=== PATIENT | female | born 1935 | race Asian ===

== ENCOUNTER 2016-08-31 12:34 | Inpatient (IN) | payer OTHER ==
[~2016-08-31] VITALS: Ht 157.5 cm; Wt 74.0 kg
[~2016-08-31 12:34] MED LIST: AMLODIPINE5 M1; BENAZEPRIL10 M1; CLINDAMYCIN HC300 MG PO; GABAPENTIN100 M2; LAC PO; LEVAQUIN500 MG PO; MIRTAZAPINE15 M2; PROAIR HFA0.09 MG/A1 INH; PULMICORT180 MCG/Ac INH; SIMVASTATIN10 M1
[2016-08-31 13:59] LABS: PLATELET COUNT 201 x10^3mcL (130-400)
[2016-08-31 14:07] LABS: RED CELL DISTRIBUTION WIDTH 15.6 % (11.5-14.5)
[2016-08-31] MEDS ORDERED: AMIODARONE HYD200 M1 PO (14:20)
[2016-08-31] MEDS ORDERED: ELIQUIS2.5 MG PO (14:20)
[2016-08-31] MEDS ORDERED: LIPI20 PO (14:21)
[2016-08-31] MEDS ORDERED: CARVEDILOL6.25 M1 PO (14:21)
[2016-08-31] MEDS ORDERED: CATAPRES0.1 MG PO (14:21)
[2016-08-31] MEDS ORDERED: NEU300 PO (14:22)
[2016-08-31] MEDS ORDERED: BENAZEPRIL HYDR20 M1 PO (14:22)
[2016-08-31] MEDS ORDERED: ALENDRONATE SOD70 M2 PO (14:22)
[2016-08-31 14:48] LABS: MONOCYTE 1 % (0-7); SEGMENTED NEUTROPHILS 70 % (37-75)
[2016-08-31 14:49] LABS: BAND NEUTROPHIL 22 % (0-10); BASOPHIL 0 % (0-2); rbc morphology (normal/abnorm) ABNORMAL (NORMAL)
[2016-08-31 14:55] LABS: CALCIUM 8.3 mg/dL (8.5-10.1); CARBON DIOXIDE 20.7 mmol/L (21-32); CHLORIDE SERUM 97 mmol/L (98-107); CREATININE SERUM 1.4 mg/dL (0.6-1.0); GLUCOSE SERUM 142 mg/dL (74-106); POTASSIUM SERUM 3.9 mmol/L (3.5-5.1); SODIUM SERUM 131 mmol/L (136-145)
[2016-08-31 15:00] LABS: ALKALINE PHOSPHATASE 69 U/L (46-116); ALT/SGPT 46 U/L (14-59); BILIRUBIN TOTAL 1.6 mg/dL (0.20-1.00); TOTAL PROTEIN, SERUM 6.8 g/dL (6.4-8.2)
[2016-08-31 15:02] LABS: ALBUMIN 2.4 g/dL (3.4-5.0)
[2016-08-31 15:23] LABS: AST/SGOT 85 U/L (15-37)
[2016-08-31 16:12] VITALS: BP 107/47
[2016-08-31 16:14] VITALS: BP 105/76
[2016-08-31 17:12] LABS: MAGNESIUM 2.5 mg/dL (1.8-2.4); PHOSPHOROUS 2.5 mg/dL (2.5-4.9)
[2016-08-31 17:21] LABS: T3 TOTAL 0.53 ng/mL
[2016-08-31 17:25] LABS: FREE T4 2.09 ng/dL (0.76-1.46); FREE THYROXINE INDEX 5.3 ug/dL (1.4-4.5); T4(THYROXINE) 13.2 ug/dL (4.7-13.3)
[2016-08-31 17:28] VITALS: BP 107/74
[2016-08-31 18:48] VITALS: BP 106/47
[2016-08-31 21:54] VITALS: BP 131/53
[2016-09-01 05:24] VITALS: BP 112/60
[2016-09-01 06:34] LABS: PLATELET COUNT 146 x10^3mcL (130-400)
[2016-09-01 06:42] LABS: CALCIUM 7.6 mg/dL (8.5-10.1); CARBON DIOXIDE 23.4 mmol/L (21-32); CHLORIDE SERUM 98 mmol/L (98-107); CREATININE SERUM 1.7 mg/dL (0.6-1.0); GLUCOSE SERUM 172 mg/dL (74-106); POTASSIUM SERUM 3.7 mmol/L (3.5-5.1); SODIUM SERUM 135 mmol/L (136-145)
[2016-09-01 07:16] LABS: RED CELL DISTRIBUTION WIDTH 15.2 % (11.5-14.5)
[2016-09-01 09:53] LABS: BAND NEUTROPHIL 44 % (0-10); BASOPHIL 0 % (0-2); METAMYELOCTE 2 % (0-2); MONOCYTE 3 % (0-7); SEGMENTED NEUTROPHILS 46 % (37-75)
[2016-09-01 09:54] LABS: PLATELET MORPHOLOGY PLATELETS DECREASED; rbc morphology (normal/abnorm) NORMAL (NORMAL)
[2016-09-01 11:36] LABS: microscopic required? YES; urine erythrocyte 1+ (NEGATIVE)
[2016-09-01 15:11] VITALS: BP 102/53
[2016-09-01 17:33] VITALS: BP 96/48
[2016-09-01 20:36] VITALS: BP 107/57
[2016-09-02] VITALS (12 sets, daily range): BP systolic 65–109; BP diastolic 31–53
[2016-09-02 06:47] LABS: PLATELET COUNT 178 x10^3mcL (130-400)
[2016-09-02 06:59] LABS: RED CELL DISTRIBUTION WIDTH 15.3 % (11.5-14.5)
[2016-09-02 07:49] LABS: CALCIUM 7.9 mg/dL (8.5-10.1); CARBON DIOXIDE 25.1 mmol/L (21-32); CHLORIDE SERUM 101 mmol/L (98-107); CREATININE SERUM 2.1 mg/dL (0.6-1.0); GLUCOSE SERUM 138 mg/dL (74-106); MAGNESIUM 2.8 mg/dL (1.8-2.4); PHOSPHOROUS 3.9 mg/dL (2.5-4.9); POTASSIUM SERUM 3.3 mmol/L (3.5-5.1); SODIUM SERUM 140 mmol/L (136-145)
[2016-09-02 08:33] LABS: BAND NEUTROPHIL 14 % (0-10); BASOPHIL 0 % (0-2); MONOCYTE 2 % (0-7); PLATELET MORPHOLOGY PLATELETS DECREASED; SEGMENTED NEUTROPHILS 83 % (37-75); rbc morphology (normal/abnorm) ABNORMAL (NORMAL)
[2016-09-03] VITALS (20 sets, daily range): BP systolic 84–137; BP diastolic 41–88
[2016-09-03 05:33] LABS: PLATELET COUNT 172 x10^3mcL (130-400)
[2016-09-03 05:35] LABS: BASOPHIL % 0 % (0-2); RED CELL DISTRIBUTION WIDTH 16.3 % (11.5-14.5)
[2016-09-03 06:10] LABS: ALBUMIN 2.8 g/dL (3.4-5.0); ALKALINE PHOSPHATASE 90 U/L (46-116); ALT/SGPT 69 U/L (14-59); AST/SGOT 162 U/L (15-37); BILIRUBIN TOTAL 2.28 mg/dL (0.20-1.00); CALCIUM 6.8 mg/dL (8.5-10.1); CARBON DIOXIDE 22.2 mmol/L (21-32); CHLORIDE SERUM 105 mmol/L (98-107); CREATININE SERUM 3.5 mg/dL (0.6-1.0); GLUCOSE SERUM 193 mg/dL (74-106); POTASSIUM SERUM 3.4 mmol/L (3.5-5.1); SODIUM SERUM 142 mmol/L (136-145); TOTAL PROTEIN, SERUM 6.1 g/dL (6.4-8.2)
[2016-09-04] VITALS (16 sets, daily range): BP systolic 81–120; BP diastolic 43–63
[2016-09-04 05:49] LABS: CALCIUM 7.4 mg/dL (8.5-10.1); CHLORIDE SERUM 103 mmol/L (98-107); CREATININE SERUM 3.1 mg/dL (0.6-1.0); GLUCOSE SERUM 241 mg/dL (74-106); MAGNESIUM 2.4 mg/dL (1.8-2.4); PHOSPHOROUS 2.6 mg/dL (2.5-4.9); POTASSIUM SERUM 4.2 mmol/L (3.5-5.1); SODIUM SERUM 140 mmol/L (136-145)
[2016-09-04 05:59] LABS: PLATELET COUNT 153 x10^3mcL (130-400)
[2016-09-04 06:00] LABS: BASOPHIL % 0 % (0-2); RED CELL DISTRIBUTION WIDTH 16.3 % (11.5-14.5)
[2016-09-04 06:30] LABS: IRON 69 ug/dL (50-170); TOTAL IRON BINDING CAPACITY 266 ug/dL (250-450)
[2016-09-05] VITALS (18 sets, daily range): BP systolic 73–132; BP diastolic 38–64
[2016-09-05 05:23] LABS: PLATELET COUNT 142 x10^3mcL (130-400)
[2016-09-05 05:31] LABS: CALCIUM 7.5 mg/dL (8.5-10.1); CARBON DIOXIDE 25.4 mmol/L (21-32); CHLORIDE SERUM 105 mmol/L (98-107); CREATININE SERUM 3.5 mg/dL (0.6-1.0); GLUCOSE SERUM 198 mg/dL (74-106); PHOSPHOROUS 3.6 mg/dL (2.5-4.9); POTASSIUM SERUM 4.8 mmol/L (3.5-5.1); SODIUM SERUM 140 mmol/L (136-145)
[2016-09-05 05:33] LABS: RED CELL DISTRIBUTION WIDTH 16.4 % (11.5-14.5)
[2016-09-05 06:14] LABS: BAND NEUTROPHIL 7 % (0-10); METAMYELOCTE 11 % (0-2); MONOCYTE 1 % (0-7); MYELOCYTE 2 % (0-2); SEGMENTED NEUTROPHILS 76 % (37-75)
[2016-09-05 06:15] LABS: PLATELET MORPHOLOGY FEW LARGE PLATELETS; rbc morphology (normal/abnorm) ABNORMAL (NORMAL)
[2016-09-06] VITALS (19 sets, daily range): BP systolic 91–1123; BP diastolic 41–76
[2016-09-06 04:51] LABS: PLATELET COUNT 152 x10^3mcL (130-400)
[2016-09-06 05:02] LABS: CALCIUM 7.3 mg/dL (8.5-10.1); CARBON DIOXIDE 24.9 mmol/L (21-32); CHLORIDE SERUM 104 mmol/L (98-107); CREATININE SERUM 3.5 mg/dL (0.6-1.0); GLUCOSE SERUM 169 mg/dL (74-106); MAGNESIUM 1.9 mg/dL (1.8-2.4); PHOSPHOROUS 4.1 mg/dL (2.5-4.9); POTASSIUM SERUM 5.2 mmol/L (3.5-5.1); SODIUM SERUM 139 mmol/L (136-145)
[2016-09-06 05:34] LABS: BAND NEUTROPHIL 4 % (0-10); METAMYELOCTE 10 % (0-2); MONOCYTE 1 % (0-7); MYELOCYTE 1 % (0-2); SEGMENTED NEUTROPHILS 79 % (37-75)
[2016-09-06 05:35] LABS: rbc morphology (normal/abnorm) ABNORMAL (NORMAL)
[2016-09-06 05:36] LABS: PLATELET MORPHOLOGY FEW LARGE PLATELETS
[2016-09-06 14:17] LABS: CALCIUM 7.3 mg/dL (8.5-10.1); CARBON DIOXIDE 24.6 mmol/L (21-32); CHLORIDE SERUM 102 mmol/L (98-107); GLUCOSE SERUM 167 mg/dL (74-106); SODIUM SERUM 143 mmol/L (136-145)
[2016-09-06 14:21] LABS: POTASSIUM SERUM 5.8 mmol/L (3.5-5.1)
[2016-09-06 14:22] LABS: CREATININE SERUM 4.3 mg/dL (0.6-1.0)
[2016-09-07] VITALS (18 sets, daily range): BP systolic 84–147; BP diastolic 39–58
[2016-09-07 05:25] LABS: PLATELET COUNT 150 x10^3mcL (130-400)
[2016-09-07 05:35] LABS: RED CELL DISTRIBUTION WIDTH 15.6 % (11.5-14.5)
[2016-09-07 05:48] LABS: ALBUMIN 1.7 g/dL (3.4-5.0); ALKALINE PHOSPHATASE 153 U/L (46-116); ALT/SGPT 53 U/L (14-59); AST/SGOT 53 U/L (15-37); CALCIUM 7.4 mg/dL (8.5-10.1); CARBON DIOXIDE 26.8 mmol/L (21-32); CHLORIDE SERUM 105 mmol/L (98-107); CREATININE SERUM 3.1 mg/dL (0.6-1.0); GLUCOSE SERUM 161 mg/dL (74-106); MAGNESIUM 1.9 mg/dL (1.8-2.4); PHOSPHOROUS 4.7 mg/dL (2.5-4.9); POTASSIUM SERUM 5.3 mmol/L (3.5-5.1); SODIUM SERUM 140 mmol/L (136-145); TOTAL PROTEIN, SERUM 4.3 g/dL (6.4-8.2)
[2016-09-07 05:49] LABS: ATYPICAL LYMPH 1 %; BAND NEUTROPHIL 4 % (0-10); METAMYELOCTE 7 % (0-2); MONOCYTE 3 % (0-7); MYELOCYTE 2 % (0-2); SEGMENTED NEUTROPHILS 79 % (37-75)
[2016-09-07 05:52] LABS: rbc morphology (normal/abnorm) ABNORMAL (NORMAL)
[2016-09-07 05:53] LABS: PLATELET MORPHOLOGY LARGE PLATELET SEEN
[2016-09-08] VITALS (18 sets, daily range): BP systolic 80–139; BP diastolic 33–63
[2016-09-08 05:42] LABS: BASOPHIL % 0.6 % (0-2); PLATELET COUNT 142 x10^3mcL (130-400)
[2016-09-08 05:50] LABS: CALCIUM 7.7 mg/dL (8.5-10.1); CARBON DIOXIDE 28.9 mmol/L (21-32); CHLORIDE SERUM 104 mmol/L (98-107); CREATININE SERUM 2.9 mg/dL (0.6-1.0); GLUCOSE SERUM 136 mg/dL (74-106); POTASSIUM SERUM 4.2 mmol/L (3.5-5.1); SODIUM SERUM 142 mmol/L (136-145)
[2016-09-08 20:27] LABS: PLATELET COUNT 133 x10^3mcL (130-400)
[2016-09-08 20:56] LABS: RED CELL DISTRIBUTION WIDTH 19.5 % (11.5-14.5)
[2016-09-08 21:19] LABS: BAND NEUTROPHIL 10 % (0-10); BASOPHIL 0 % (0-2); METAMYELOCTE 1 % (0-2); MONOCYTE 3 % (0-7); MYELOCYTE 1 % (0-2); SEGMENTED NEUTROPHILS 81 % (37-75)
[2016-09-08 21:21] LABS: PLATELET MORPHOLOGY PLATELETS NORMAL
[2016-09-09] VITALS (17 sets, daily range): BP systolic 78–132; BP diastolic 34–543
[2016-09-09 04:51] LABS: BASOPHIL % 0.7 % (0-2); PLATELET COUNT 134 x10^3mcL (130-400)
[2016-09-09 04:59] LABS: RED CELL DISTRIBUTION WIDTH 20.3 % (11.5-14.5)
[2016-09-09 05:05] LABS: ALKALINE PHOSPHATASE 245 U/L (46-116); ALT/SGPT 41 U/L (14-59); AST/SGOT 50 U/L (15-37); BILIRUBIN TOTAL 1.9 mg/dL (0.20-1.00); CALCIUM 7.6 mg/dL (8.5-10.1); CARBON DIOXIDE 24.3 mmol/L (21-32); CHLORIDE SERUM 104 mmol/L (98-107); GLUCOSE SERUM 116 mg/dL (74-106); PHOSPHOROUS 6.9 mg/dL (2.5-4.9); POTASSIUM SERUM 4.8 mmol/L (3.5-5.1); SODIUM SERUM 143 mmol/L (136-145)
[2016-09-09 05:08] LABS: ALBUMIN 1.6 g/dL (3.4-5.0); TOTAL PROTEIN, SERUM 4.2 g/dL (6.4-8.2)
[2016-09-09 05:09] LABS: CREATININE SERUM 4.2 mg/dL (0.6-1.0)
[2016-09-10] VITALS (18 sets, daily range): BP systolic 86–136; BP diastolic 40–56; Ht 157.5 cm; Wt 74.0 kg
[2016-09-10 05:18] LABS: PLATELET COUNT 135 x10^3mcL (130-400)
[2016-09-10 05:27] LABS: RED CELL DISTRIBUTION WIDTH 19.2 % (11.5-14.5)
[2016-09-10 05:43] LABS: CALCIUM 7.1 mg/dL (8.5-10.1); CHLORIDE SERUM 101 mmol/L (98-107); CREATININE SERUM 3.5 mg/dL (0.6-1.0); GLUCOSE SERUM 127 mg/dL (74-106); PHOSPHOROUS 5.8 mg/dL (2.5-4.9); POTASSIUM SERUM 4.1 mmol/L (3.5-5.1); SODIUM SERUM 139 mmol/L (136-145)
[2016-09-10 05:52] LABS: BAND NEUTROPHIL 6 % (0-10); METAMYELOCTE 4 % (0-2); MONOCYTE 3 % (0-7); SEGMENTED NEUTROPHILS 85 % (37-75)
[2016-09-10 05:57] LABS: rbc morphology (normal/abnorm) ABNORMAL (NORMAL)
[2016-09-10 05:58] LABS: PLATELET MORPHOLOGY LARGE PLATELET SEEN; tear drop cell (dacryocyte) 1+
[2016-09-11] VITALS (19 sets, daily range): BP systolic 97–131; BP diastolic 37–58
[2016-09-11 05:12] LABS: BASOPHIL % 1.3 % (0-2); PLATELET COUNT 164 x10^3mcL (130-400)
[2016-09-11 05:24] LABS: CHLORIDE SERUM 101 mmol/L (98-107); CREATININE SERUM 3.1 mg/dL (0.6-1.0); GLUCOSE SERUM 181 mg/dL (74-106); PHOSPHOROUS 7.5 mg/dL (2.5-4.9); POTASSIUM SERUM 4.6 mmol/L (3.5-5.1); SODIUM SERUM 137 mmol/L (136-145)
[2016-09-11 05:41] LABS: RED CELL DISTRIBUTION WIDTH 19.6 % (11.5-14.5)
[2016-09-12] VITALS (12 sets, daily range): BP systolic 99–121; BP diastolic 37–50
[2016-09-12 05:00] LABS: PLATELET COUNT 155 x10^3mcL (130-400)
[2016-09-12 05:02] LABS: RED CELL DISTRIBUTION WIDTH 19.5 % (11.5-14.5)
[2016-09-12 05:03] LABS: CALCIUM 7.1 mg/dL (8.5-10.1); CARBON DIOXIDE 29.6 mmol/L (21-32); CHLORIDE SERUM 104 mmol/L (98-107); CREATININE SERUM 2.7 mg/dL (0.6-1.0); GLUCOSE SERUM 182 mg/dL (74-106); PHOSPHOROUS 5.6 mg/dL (2.5-4.9); POTASSIUM SERUM 3.8 mmol/L (3.5-5.1); SODIUM SERUM 141 mmol/L (136-145)
[2016-09-12 05:33] LABS: BAND NEUTROPHIL 4 % (0-10); METAMYELOCTE 4 % (0-2); MONOCYTE 2 % (0-7); SEGMENTED NEUTROPHILS 87 % (37-75)
[2016-09-12 05:35] LABS: rbc morphology (normal/abnorm) ABNORMAL (NORMAL)
[2016-09-12 05:36] LABS: PLATELET MORPHOLOGY PLATELETS NORMAL
== END 2016-09-12 18:07 | disposition expired | DRG 870 ==
LOC: ED 12:34 → DU 14:09 → IC 14:09 → DU 15:44 → IC 09-02 08:42
PROVIDERS: Emergency Medicine; Family Medicine; Internal Medicine Cardiovascular Disease; Internal Medicine Nephrology; ADMIT Family Medicine
PROC: 5A1955Z Respiratory Ventilation, Greater than 96 Consecutive Hours (ICD-10-PCS; principal; 2016-09-02)
PROC: 0BH17EZ Insertion of Endotracheal Airway into Trachea, Via Natural or Artificial Opening (ICD-10-PCS; 2016-09-02)
PROC: 05HM33Z Insertion of Infusion Device into Right Internal Jugular Vein, Percutaneous Approach (ICD-10-PCS; 2016-09-02)
PROC: B543ZZA Ultrasonography of Right Jugular Veins, Guidance (ICD-10-PCS; 2016-09-02)
PROC: 05HM33Z Insertion of Infusion Device into Right Internal Jugular Vein, Percutaneous Approach (ICD-10-PCS; 2016-09-03)
DX: A41.9 Sepsis, unspecified organism (principal); J69.0 Pneumonitis due to inhalation of food and vomit; J96.21 Acute and chronic respiratory failure with hypoxia; E43 Unspecified severe protein-calorie malnutrition; N17.0 Acute kidney failure with tubular necrosis; I50.43 Acute on chronic combined systolic (congestive) and diastolic (congestive) heart failure; R65.21 Severe sepsis with septic shock; E87.1 Hypo-osmolality and hyponatremia; J44.1 Chronic obstructive pulmonary disease with (acute) exacerbation; K92.2 Gastrointestinal hemorrhage, unspecified; I11.0 Hypertensive heart disease with heart failure; I48.0 Paroxysmal atrial fibrillation; E87.6 Hypokalemia; E78.5 Hyperlipidemia, unspecified; G89.29 Other chronic pain; M54.5 Low back pain; E86.0 Dehydration; F32.9 Major depressive disorder, single episode, unspecified; I27.2 Other secondary pulmonary hypertension; I34.0 Nonrheumatic mitral (valve) insufficiency; K76.89 Other specified diseases of liver; Z86.11 Personal history of tuberculosis; Z68.25 Body mass index [BMI] 25.0-25.9, adult
CPT/HCPCS: 36556; 36600; 82962; 83880; 84439; 86580; 94150; A4628; C9113; J0456; J0696; J1160; J1450; J1642; J1644; J1815; J1940; J1956; J2060; J2250; J2270; J2370; J2405; J2543; J2920; J2930; J3010; J3370; J3480; J3490; J7030; J7040; J7050; J7613; J7620; J7626; J7644; P9016; P9047; Q0092; Q0163